=== PATIENT | male | born 1980 | race Caucasian/White ===

== ENCOUNTER 2020-03-29 11:38 | Emergency (ER) | payer OTHER ==
[~2020-03-29] VITALS: Ht 180.3 cm; Wt 88.5 kg
[~2020-03-29 11:38] MED LIST: BACITRACIN 500U30 G1 TOP; BUPROPION; ULTRAM 50MG TAB50 MG PO
[2020-03-29 12:08] LABS: HEMATOCRIT 39.4 % (42.0-52.0); HEMOGLOBIN 13.2 gm/dL (14.0-18.0); MCH 29.7 pg (26.0-34.0); MCHC 33.5 g/dL (28.0-37.0); MCV 88.6 fL (80.0-100.0); RBC 4.45 mil/uL (4.50-6.00); RDW 13.3 % (10.5-14.5); WBC 8.8 thou/uL (4.0-11.0)
[2020-03-29 12:15] LABS: CALCIUM 9.1 mg/dL (8.5-10.1); CREATININE 1.1 mg/dL (0.7-1.3); POTASSIUM 3.8 mmol/L (3.5-5.1)
[2020-03-29 12:20] LABS: TOTAL BILIRUBIN 0.3 mg/dL (0.2-1.0); TOTAL PROTEIN 7.5 g/dL (6.4-8.2)
[2020-03-29 12:51] LABS: URINE BILIRUBIN NEGATIVE (Negative); URINE BLOOD NEGATIVE (Negative); URINE CLARITY CLEAR; URINE COLOR YELLOW; URINE GLUCOSE-RANDOM* NEGATIVE (Negative); URINE KETONES NEGATIVE (Negative); URINE LEUKOCYTES-REFLEX NEGATIVE (Negative); URINE NITRITE-REFLEX NEGATIVE (Negative); URINE PROTEIN (DIPSTICK) NEGATIVE (Negative); URINE SPECIFIC GRAVITY >= 1.030 (1.005-1.035); URINE UROBILINOGEN 0.2 E.U./dl (0.2-1.0)
[2020-03-29] MEDS ORDERED: TIVICAY50 MG PO (13:59)
[2020-03-29] MEDS ORDERED: DESCOVY 200-251 EACH PO (13:59)
[2020-03-29 14:21] VITALS: BP 126/84
[2020-03-30 23:06] LABS: HEP B SURFACE Ab(ANTI-HBS Reactive (()); HEPATITIS B SURFACE AG Negative (Negative); HEPATITIS C VIRUS AB <0.1 (0.0-0.9)
== END 2020-03-29 14:21 | disposition home or self-care (01) ==
LOC: ER 11:38
PROVIDERS: Nurse Practitioner Family
DX: R19.7 Diarrhea, unspecified (principal); Z20.2 Contact with and (suspected) exposure to infections with a predominantly sexual mode of transmission; Z20.6 Contact with and (suspected) exposure to human immunodeficiency virus [HIV]; I10 Essential (primary) hypertension; Z79.899 Other long term (current) drug therapy